=== PATIENT | male | born 1990 | race Caucasian/White ===

== ENCOUNTER → 2018-11-26 | Outpatient (CLI) | payer BC | LOC: GMAJ 18:48 | PROVIDERS: ATTEND Family Medicine | DX: R94.5 Abnormal results of liver function studies (principal) ==

== ENCOUNTER → 2018-12-01 | Outpatient (CLI) | payer BC ==
--- NOTE | 2018-12-01 14:11 | US ---
EXAM DESCRIPTION: Abdomen,Complete: Ultrasound. CLINICAL HISTORY: R94.5 COMPARISON: None Available. TECHNIQUE: Transabdominal scanning: grayscale and Doppler modes.. Technically difficult study because patient had difficulty with breath-holding. Also large patient body habitus. FINDINGS: Gallbladder: Normal size echogenicity with no intraluminal stones or sludge. Normal wall thickness 2.7 mm. No fluid. Nontender with transducer pressure. Common bile duct: Normal caliber 6 mm. Liver: 17.4 cm right lobe long axis. Diffuse increased echogenicity. Normal caliber of the intrahepatic ducts in the portal vein, also demonstrating hepatopedal flow. Pancreas: Normal echogenicity of the segments with duct not seen.. Abdominal aorta: Normal caliber from the proximal segment to the distal bifurcation. IVC: visualized; normal caliber. Spleen normal echogenicity; long axis measurement is 11.5 cm. Right kidney: 11.3 cm long axis. Normal cortical thickness and echogenicity. No hydronephrosis, no perirenal fluid, no echogenic stone. Left kidney: 12.8 cm long axis. 1.8 x 1.7 cm cyst with small calcification. Normal cortical thickness and echogenicity. No hydronephrosis, no perirenal fluid, no echogenic stone. IMPRESSION: 1. Mild hepatomegaly with diffuse steatosis. Normal ducts in vascularity. No focal lesions. Smooth capsule with no ascites. Gallbladder and common bile duct unremarkable. Normal pancreas. Spleen negative. 2. Small cyst with calcification left kidney otherwise unremarkable. Right kidney negative. Normal caliber of the abdominal aorta and IVC. Electronically signed by: Jarrod Barber MD 12/01/2018 2:10 PM CDT
== END ==
LOC: US 08:06
PROVIDERS: ATTEND Family Medicine
DX: K76.0 Fatty (change of) liver, not elsewhere classified (principal); N28.1 Cyst of kidney, acquired